=== PATIENT | female | born 1965 | race Caucasian/White ===

== ENCOUNTER → 2017-04-21 | Outpatient (CLI) | payer OTHER ==
--- NOTE | 2017-04-21 12:54 | BD ---
EXAMINATION TYPE: MG DEXA axial skeleton. DATE OF EXAM: 04/21/2017 CLINICAL HISTORY: : no Height: 66 inches Weight: 139 pounds FRAX RISK QUESTIONS: Alcohol (3 or more units per day): no Family History (Parent hip fracture): no Glucocorticoids (More than 3mos): no (Ex: prednisone, prednisolone, methylprednisolone, dexamethasone, and hydrocortisone). History of Fracture in Adulthood: no Secondary Osteoporosis: 1. Type 1 Diabetes: no 2. Hyperthyroidism: no 3. Menopause before 45:no 4. Malnutrition: no 5. Chronic liver disease: no Rheumatoid Arthritis: no Current Tobacco Use: no RISK FACTORS HISTORY OF: Family History of Osteoporosis: no Active: yes Diet low in dairy products/other sources of calcium: somewhat; servings several times a week Postmenopausal woman: No Take estrogen and/or progesterone medications: no Lost more than 2 inches in height since high school: no Frequent falls: no Poor Health: no Hyperparathyroidism: no Adrenal Insufficiency: no MEDICATIONS: Prednisone or other steroids: no Thyroid Medications: no Osteoporosis Medications: no EXAM MEASUREMENTS: Bone mineral densitometry was performed using the [employer] System. Bone mineral density as measured about the Lumbar spine is: ----- L1-L4(G/cm2): 1.252 T Score Values are as follows: ----- L2: 0.2 ----- L3: 0.3 ----- L4: 1.5 ----- L1-L4: 0.6 Bone mineral density BASELINE Bone mineral density about the R hip (g/cm2): 1.049 Bone mineral density about the L hip (g/cm2): 1.080 T Score values are as follows: -----R Neck: 0.1 -----L Neck: 0.3 -----R Total: 0.5 -----L Total: 0.9 Bone mineral density BASELINE IMPRESSION: No evidence for osteoporosis or osteopenia. NOTE: T-SCORE=SD OF THE YOUNG ADULT MEAN.
== END | disposition home or self-care (01) ==
LOC: RADBDWWP 10:26
PROVIDERS: ATTEND Family Medicine
DX: N95.9 Unspecified menopausal and perimenopausal disorder (principal)
CPT/HCPCS: 77080

== ENCOUNTER → 2017-04-21 | Outpatient (CLI) | payer OTHER ==
--- NOTE | 2017-04-22 11:07 | MM ---
Reason for exam: screening (asymptomatic). Last mammogram was performed 14 years and 4 months ago. History: Patient had first child after 30. Physical Findings: A clinical breast exam by your physician is recommended on an annual basis and results should be correlated with mammographic findings. MG 3D Screening Mammo W/Cad Bilateral CC and MLO view(s) were taken. Prior study comparison: March 20, 2016, mammogram, performed at [facility]. February 22, 2015, mammogram, performed at [facility]. The breast tissue is heterogeneously dense. This may lower the sensitivity of mammography. Finding: There are stable diffuse/scattered calcifications in both breasts. There is no discrete abnormality. No significant changes in finding since March 20, 2016 and February 22, 2015. ASSESSMENT: Benign, BI-RAD 2 RECOMMENDATION: Routine screening mammogram of both breasts in 1 year.
== END | disposition home or self-care (01) ==
LOC: RADMAMWWP 10:21
PROVIDERS: ATTEND Obstetrics & Gynecology
DX: Z12.31 Encounter for screening mammogram for malignant neoplasm of breast (principal)
CPT/HCPCS: 77063; G0202

== ENCOUNTER 2018-09-20 22:02 | Emergency (ER) | payer MEDICAID ==
[2018-09-20 22:10] VITALS: BP 160/87; PULSE 78; RESP 15; TEMP 98
--- NOTE | 2018-09-20 23:34 | ED ---
Eye Problem HPI - General Chief complaint: Eye Problems Stated complaint: Flashing Vision "streaks and floaters" in vision Time Seen by Provider: 09/20/18 22:11 Source: patient Mode of arrival: ambulatory Limitations: no limitations - History of Present Illness Initial comments: 53-year-old female patient presents to the emergency department today for ev aluation of visual disturbance of left eye. States that 5 days ago she started to notice black floaters to her vision. States that 3 days ago she developed a white streaks through her vision and a fogginess. Patient reports that the right eye is normal. She denies any pain or discomfort to the left eye. Denies any headache. Denies any numbness, tingling, or weakness to her extremities. Denies any history of similar symptoms. Denies any head injury. Patient does not take medication states that she is otherwise healthy. Patient denies any recent rash, fever, chills, shortness breath, chest pain, abdominal pain, nausea, vomiting, diarrhea, constipation, back pain, hematuria, dysuria, urinary urgency, urinary frequency, or any other complaints. - Related Data Home Medications Medication Instructions Recorded Confirmed Biotin 5 mg PO DAILY 09/20/18 09/20/18 Escitalopram Oxalate [Lexapro] 10 mg PO DAILY 09/20/18 09/20/18 Glucosamine/Chondr Ac A Sod [Osteo 1 tab PO DAILY 09/20/18 09/20/18 Bi-Flex Caplet] Allergies Allergy/AdvReac Type Severity Reaction Status Date / Time No Known Allergies Allergy Verified 09/20/18 22:37 Review of Systems ROS Statement: Those systems with pertinent positive or pertinent negative responses have been documented in the HPI. ROS Other: All systems not noted in ROS Statement are negative. Past Medical History Past Medical History: No Reported History History of Any Multi-Drug Resistant Organisms: None Reported Past Surgical History: Section, Orthopedic Surgery Past Psychological History: Anxiety Smoking Status: Former smoker Past Alcohol Use History: Occasional Past Drug Use History: None Reported, Marijuana General Exam Limitations: no limitations General appearance: alert, in no apparent distress, other (This is a well-dev eloped, well-nourished adult female patient in no acute distress. Vital signs upon presentation are temperature 98.0F, pulse 78, respirations 15, blood pressure 160/87, pulse ox 100% on room air.) Eye exam: Present: normal appearance, PERRL, EOMI, other (Funduscopic examination was performed using ophthalmoscope, no retinal abnormalities were detected with this limited exam.). Absent: scleral icterus, conjunctival injection, nystagmus, periorbital swelling ENT exam: Present: normal exam, normal oropharynx, mucous membranes moist Respiratory exam: Present: normal lung sounds bilaterally. Absent: respiratory distress, wheezes, rales, rhonchi, stridor Cardiovascular Exam: Present: regular rate, normal rhythm, normal heart sounds. Absent: systolic murmur, diastolic murmur, rubs, gallop, clicks GI/Abdominal exam: Present: soft, normal bowel sounds. Absent: distended, tenderness, guarding, rebound, rigid Neurological exam: Present: alert, oriented X3, CN II-XII intact, other (Strength in all 4 extremities is 5/5.) Psychiatric exam: Present: normal affect, normal mood Skin exam: Present: warm, dry, intact, normal color. Absent: rash Course Vital Signs 09/20/18 22:05 Temperature 98.0 F Pulse Rate 78 Respiratory 15 Rate Blood Pressure 160/87 O2 Sat by Pulse 100 Oximetry Medical Decision Making - Medical Decision Making 53-year-old female patient presented to the emergency department today for evaluation of visual disturbance of left eye. She reports black floaters and white streaks in her vision. Physical examination is relatively unremarkable. She is neurologically intact. Limited funduscopic examination was performed utilizing ophthalmoscope, no evidence for retinal abnormalities. I did discuss the case with the on-call wastewater process engineer Dr. Burrell who states he will be able to see the patient in the morning at 9 AM. I did discuss plan and findings with the patient. She is instructed to follow-up at [address] Burrell. I did discuss in detail risks of not following up for further ophthalmologic evaluation including permanent loss of vision. She does verbalize understanding of these risks. Return parameters discussed in detail. She verbalizes understanding and agrees with this plan. Disposition Clinical Impression: Visual disturbance Disposition: HOME SELF-CARE Condition: Good Instructions (If sedation given, give patient instructions): Blurred Vision (ED), Visual Floaters (ED) Additional Instructions: Follow-up with the wastewater process engineer in the morning at 9 AM. Return to the [facility] department immediately for any new, worsening, or concerning symptoms. Is patient prescribed a controlled substance at d/c from ED?: No Referrals: Sharon Miller MD [Primary Care Provider] - 1-2 days Edu Burrell MD [STAFF PHYSICIAN] - 1-2 days Time of Disposition: 23:34
== END 2018-09-20 23:42 | disposition home or self-care (01) ==
LOC: EC 22:02
DX: H53.9 Unspecified visual disturbance (principal); F41.9 Anxiety disorder, unspecified; Z87.891 Personal history of nicotine dependence; Z79.899 Other long term (current) drug therapy
CPT/HCPCS: 99283

== ENCOUNTER → 2018-12-30 | Outpatient (CLI) | payer MEDICAID ==
--- NOTE | 2018-12-30 13:43 | MM ---
Reason for exam: screening (asymptomatic). Last mammogram was performed 1 year and 8 months ago. History: Patient had first child after 30. Physical Findings: A clinical breast exam by your physician is recommended on an annual basis and results should be correlated with mammographic findings. MG 3D Screening Mammo W/Cad Bilateral CC and MLO view(s) were taken. Prior study comparison: April 21, 2017, bilateral MG 3d screening mammo w/cad. March 20, 2016, mammogram, performed at [facility]. The breast tissue is heterogeneously dense. This may lower the sensitivity of mammography. Finding: There is a 10 mm circumscribed round mass located 2 cm from the nipple in the anterior position of the left breast on MLO 34/55. ASSESSMENT: Incomplete: need additional imaging evaluation, BI-RAD 0 RECOMMENDATION: Special view mammogram and ultrasound of the right breast. [facility] will attempt to contact patient to return for supplemental views and ultrasound.
== END | disposition home or self-care (01) ==
LOC: RADMAMWWP 10:23
PROVIDERS: ATTEND Family Medicine
DX: Z12.31 Encounter for screening mammogram for malignant neoplasm of breast (principal)
CPT/HCPCS: 77063; 77067

== ENCOUNTER → 2019-01-13 | Outpatient (CLI) | payer MEDICAID ==
--- NOTE | 2019-01-13 14:06 | MM ---
Reason for exam: additional evaluation requested from abnormal screening. Last mammogram was performed less than 1 month ago. History: Patient had first child at age 35. Physical Findings: Nurse Summary: 0.5cm nodule in the right breast at 11 o'clock, 12 o'clock and 9 o'clock and a less than 1cm nodule in the left breast at 12-1 o'clock (nurse kp). MG 3D Work Up W/Cad LT Spot compression MLO and LM view(s) were taken of the left breast. Prior study comparison: December 30, 2018, bilateral MG 3d screening mammo w/cad. April 21, 2017, bilateral MG 3d screening mammo w/cad. The breast tissue is heterogeneously dense. This may lower the sensitivity of mammography. No significant new findings when compared with previous films. These results were verbally communicated with the patient and result sheet given to the patient on 01/13/19. ASSESSMENT: Benign, BI-RAD 2 RECOMMENDATION: Ultrasound core biopsy of the left breast. Called Dr. Miller with mammographic findings and has scheduled an appointment for the patient for 02/04/19 at 3:[address] Greenberg. Biopsy scheduled for 02/07/19 at 12:20. PRELIMINARY REPORT CALLED AND FAXED TO DR. GREENBERG ON 01/13/19.
--- NOTE | 2019-01-13 14:10 | USB ---
Reason for exam: additional evaluation requested from abnormal screening. History: Patient had first child at age 35. US Breast Workup Limited ARA Right limited breast ultrasound including focal area of concern, retroareolar and axilla demonstrates a 0.5 x 0.3 x 0.3cm oval, cystic cluster at 9 o'clock, a 0.2 x 0.3 x 0.2cm oval, cystic lesion at 9 o'clock BB, a 0.3 x 0.4 x 0.2cm oval, cystic lesion at 10 o'clock and a 0.5 x 0.3 x 0.3cm oval, cystic, complex lesion at 11 o'clock. Left limited breast ultrasound including focal area of concern, retroareolar and axilla demonstrates a 0.5 x 0.5 x 0.4cm oval, mixed lesion at 1 o'clock with calcification, suspicious, biopsy recommended, corresponds to left palpable, a 0.4 x 0.5 x 0.3cm oval, complex, cystic lesion at 2 o'clock and a 1.0 x 0.6 x 0.5cm lesion at the posterior nipple. These results were verbally communicated with the patient and result sheet given to the patient on 01/13/19. ASSESSMENT: Suspicious, BI-RAD 4 RECOMMENDATION: Ultrasound core biopsy of the left breast. Called Dr. Miller with mammographic findings and has scheduled an appointment for the patient for 02/04/19 at 3:[address] Greenberg. Biopsy scheduled for 02/07/19 at 12:20. PRELIMINARY REPORT CALLED AND FAXED TO DR. GREENBERG ON 01/13/19.
== END | disposition home or self-care (01) ==
LOC: RADMAMWWP 09:09
PROVIDERS: ATTEND Family Medicine
DX: R92.8 Other abnormal and inconclusive findings on diagnostic imaging of breast (principal)
CPT/HCPCS: 77061; 77065

== ENCOUNTER → 2019-02-10 | Outpatient (CLI) | payer MEDICAID ==
[2019-02-10 09:12] VITALS: BP 120/81; PULSE 69; RESP 18; TEMP 98.5; BMI 23.3
--- NOTE | 2019-02-10 09:54 | P.GSHP ---
History of Present Illness H&P Date: 02/10/19 Chief Complaint: Abnormal mammogram and ultrasound of the left breast Meenakshi is a 53-year-old white female status post right breast mammogram performed on 8818. This revealed a 10 mm circumscribed round mass 2 cm from the nipple in the anterior position of the left breast. No lesions of concern were seen on the right breast. She had additional compression views of the left breast which showed no significant new findings compared with previous films. She subsequently subsequently underwent an ultrasound of both breasts. Cyst were noted in the right breast and a 0.5 x 0.4 cm lesion at 1:00 with calcification was noted in the left breast for which core biopsy was recommended. The patient states she does not do self exams and therefore does not know if she has any changes in her breast. She has not noted any nipple discharge or skin changes. Patient does not have any pain in her breasts. Family history: 1. father: prostate cancer Hormonal History: Menarche:12 , 2 miscarrages, breast fed: yes, first born at 31 Menopause: Periods are regular at this time her last menstrual period was 4 months ago BCP: yes, 15 years hormones: none Surgical history: 1. D&C 2. Meniscus surgery in her right knee Medical history: none Social history: Smoke: Smoked for 15 years but then stopped, for 20 years, started intermittent 2 years ago now approximately half a pack per day Alcohol: 3-4 nights per week 1/2 to 1 pint of vodka drugs: Marijuana daily for relaxation - Constitutional Constitutional: Reports sweats - EENT Eyes: denies blurred vision, denies pain Ears: deny: decreased hearing, tinnitus Ears, nose, mouth and throat: Denies headache, Denies sore throat - Breasts Breasts: bilateral: as per HPI - Cardiovascular Cardiovascular: Denies chest pain, Denies shortness of breath - Respiratory Respiratory: Denies cough, Denies 7 - Gastrointestinal Gastrointestinal: Denies abdominal pain, Denies diarrhea, Denies nausea, Denies vomiting - Genitourinary (Female) Genitourinary: Denies dysuria, Denies hematuria - Menstruation Menstruation: Reports cycle variable - Musculoskeletal Musculoskeletal: Denies myalgias - Integumentary Integumentary: Reports rash, Denies pruritus - Neurological Neurological: Denies numbness, Denies weakness - Psychiatric Psychiatric: Reports anxiety, Denies depression - Endocrine Endocrine: Denies fatigue, Denies weight change - Hematologic/Lymphatic Comment: none - Allergic/Immunologic Allergic/Immunologic: Reports as per HPI, Reports seasonal allergies Past Medical History Past Medical History: No Reported History History of Any Multi-Drug Resistant Organisms: None Reported Past Surgical History: Section, Orthopedic Surgery Additional Past Surgical History / Comment(s): right meniscus repair 2013; section x1 2000; d&c 1995; Past Anesthesia/Blood Transfusion Reactions: Motion Sickness, Postoperative Nausea & Vomiting (PONV) Past Psychological History: Anxiety Smoking Status: Former smoker Past Alcohol Use History: Occasional Past Drug Use History: Marijuana - Past Family History Mother Family Medical History: COPD, Hypertension Additional Family Medical History / Comment(s): heart attack; passed at age 67; Father Family Medical History: Cancer Additional Family Medical History / Comment(s): prostate cancer; Brother(s) Family Medical History: AFIB, COPD, Hypertension Medications and Allergies Home Medications Medication Instructions Recorded Confirmed Type Escitalopram Oxalate [Lexapro] 10 mg PO QAM 09/20/18 02/10/19 History Allergies Allergy/AdvReac Type Severity Reaction Status Date / Time No Known Allergies Allergy Verified 02/10/19 09:01 Surgical - Exam Vital Signs Temp Pulse Resp BP Pulse Ox 98.5 F 69 18 120/81 98 02/10/19 09:01 02/10/19 09:01 02/10/19 09:01 02/10/19 09:01 02/10/19 09:01 BMI 23.4 - General well developed, well nourished, no distress - Eyes normal ocular movement - ENT no hearing loss, no congestion - Neck no masses, trachea midline - Respiratory normal respiratory effort, clear to auscultation - Cardiovascular Rhythm: regular Heart Sounds: normal: S1, S2 - Abdomen Abdomen: soft, non tender, no guarding, no rigid, no rebound - Integumentary normal turgor - Neurologic no disoriented, no combative - Musculoskeletal normal gait, normal posture - Psychiatric oriented to time, oriented to person, oriented to place, speech is normal, memory intact breast exam: right breast: Multi-positional exam, the cystic changes, no dominant masses or nodules of concern Right axilla: Shotty adenopathy nothing of concern Left breast: Multiple positional exam increased nodularity posterior to the nipple areolar complex appears to correspond to the area seen on the ultrasound Left axilla: Shotty adenopathy nothing of concern Results Mammogram and ultrasound results reviewed Assessment and Plan Assessment: Impression: 1. Abnormal mammogram and ultrasound of the left breast 2. Cyst noted in both breast on ultrasound 3. Fibrocystic breast changes 4. Fullness left breast radiographic abnormality behind the nipple areolar complex extending to the 1 o'clock position 5. Family history of cancer in father 6. Anxiety Plan: 1. Ultrasound core biopsy area of concern in the left breast 2. Medical management of medical conditions 3. Follow-up 1 week after ultrasound core biopsy CC: Dr. Miller
== END | disposition home or self-care (01) ==
LOC: WWCWWP 08:55
PROVIDERS: ATTEND Surgery
DX: Z53.9 Procedure and treatment not carried out, unspecified reason (principal)

== ENCOUNTER → 2019-02-15 | Day surgery (SDC) | payer MEDICAID ==
[2019-02-15 10:09] VITALS: RESP 16; BMI 23.7
[2019-02-15 12:06] VITALS: BP 146/93; PULSE 77; TEMP 98
--- NOTE | 2019-02-15 12:51 | USB ---
EXAMINATION TYPE: US biopsy breast VAD LT, MG diagnostic mammo LT wo CAD DATE OF EXAM: 02/15/2019 CLINICAL HISTORY: R92.8 ABN MAMMO. TECHNIQUE: Ultrasound guided core biopsy of the palpable left breast. COMPARISON: Bilateral breast ultrasound dated 01/13/2019 FINDINGS: The procedure of ultrasound guided core biopsy was explained to the patient. Benefits, alternatives, and risks were discussed. An informed consent was then obtained. A procedural timeout was performed. The patient was placed in supine positioning for imaging and for the procedure. The overlying skin was prepped and draped in usual sterile fashion. Lidocaine buffered with bicarbonate was used as anesthetic into the skin and subcutaneous tissue up to a palpable 0.5 x 0.5 x 0.4 cm mass at the 1:00 position in the left breast. Under ultrasound guidance, a 12-gauge vacuum assisted biopsy gun device was used to obtain 5 core samples. Following this, a ribbon-shaped biopsy marker was left in mass. Postprocedural mammogram demonstrates appropriate biopsy marker placement. The patient tolerated the procedure well without any immediate complication. The patient was kept in the radiology department for short stay after the procedure and then discharged home in stable condition. IMPRESSION: Successful, uncomplicated ultrasound guided core biopsy of a palpable 0.5 x 0.5 x 0.4 cm mass at the 1:00 position in the left breast, full pathology results to follow. Pathology Results: Benign LEFT BREAST, ULTRASOUND GUIDED CORE BIOPSY: Fibrocystic changes including small cysts, fibrosis, adenosis and microcalcifications. Recommendation Follow up mammogram of the left breast in 6 months. ODALYS
== END ==
LOC: RADUSWWP 09:34
PROVIDERS: ATTEND Surgery
DX: N60.12 Diffuse cystic mastopathy of left breast (principal); N60.22 Fibroadenosis of left breast; R92.0 Mammographic microcalcification found on diagnostic imaging of breast
CPT/HCPCS: 88305; 77065; 19083; A4648; J2001

== ENCOUNTER → 2019-02-24 | Outpatient (CLI) | payer MEDICAID ==
[2019-02-24 10:50] VITALS: BP 126/86; PULSE 85; RESP 18; TEMP 98.1; BMI 23.3
--- NOTE | 2019-02-24 11:08 | P.PN ---
Subjective Progress Note Date: 02/24/19 Meenakshi is a 53-year-old white female status post right breast mammogram performed on 8818. This revealed a 10 mm circumscribed round mass 2 cm from the nipple in the anterior position of the left breast. No lesions of concern were seen on the right breast. She had additional compression views of the left breast which showed no significant new findings compared with previous films. She subsequently subsequently underwent an ultrasound of both breasts. Cyst were noted in the right breast and a 0.5 x 0.4 cm lesion at 1:00 with calcification was noted in the left breast for which core biopsy was recommended. The patient states she does not do self exams and therefore does not know if she has any changes in her breast. She has not noted any nipple discharge or skin changes. Patient does not have any pain in her breasts. She underwent an ultrasound core biopsy on 02-15-19, Pathology was fibrocystic changes including small cystic fibrosis adenosis and microcalcifications. The patient complains only of some ecchymosis following the biopsy. Family history: 1. father: prostate cancer Hormonal History: Menarche:12 , 2 miscarrages, breast fed: yes, first born at 31 Menopause: Periods are regular at this time her last menstrual period was 4 months ago BCP: yes, 15 years hormones: none Surgical history: 1. D&C 2. Meniscus surgery in her right knee Medical history: none Social history: Smoke: Smoked for 15 years but then stopped, for 20 years, started intermittent 2 years ago now approximately half a pack per day Alcohol: 3-4 nights per week 1/2 to 1 pint of vodka drugs: Marijuana daily for relaxation - Constitutional Constitutional: Reports sweats - EENT Eyes: denies blurred vision, denies pain Ears: deny: decreased hearing, tinnitus Ears, nose, mouth and throat: Denies headache, Denies sore throat - Breasts Breasts: bilateral: as per HPI - Cardiovascular Cardiovascular: Denies chest pain, Denies shortness of breath - Respiratory Respiratory: Denies cough, Denies 7 - Gastrointestinal Gastrointestinal: Denies abdominal pain, Denies diarrhea, Denies nausea, Denies vomiting - Genitourinary (Female) Genitourinary: Denies dysuria, Denies hematuria - Menstruation Menstruation: Reports cycle variable - Musculoskeletal Musculoskeletal: Denies myalgias - Integumentary Integumentary: Reports rash, Denies pruritus - Neurological Neurological: Denies numbness, Denies weakness - Psychiatric Psychiatric: Reports anxiety, Denies depression - Endocrine Endocrine: Denies fatigue, Denies weight change - Hematologic/Lymphatic Comment: none - Allergic/Immunologic Allergic/Immunologic: Reports as per HPI, Reports seasonal allergies Past Medical History Past Medical History: No Reported History History of Any Multi-Drug Resistant Organisms: None Reported Past Surgical History: Section, Orthopedic Surgery Additional Past Surgical History / Comment(s): right meniscus repair 2013; section x1 2000; d&c 1995; Past Anesthesia/Blood Transfusion Reactions: Motion Sickness, Postoperative Nausea & Vomiting (PONV) Past Psychological History: Anxiety Smoking Status: Former smoker Past Alcohol Use History: Occasional Past Drug Use History: Marijuana - Past Family History Mother Family Medical History: COPD, Hypertension Additional Family Medical History / Comment(s): heart attack; passed at age 67; Father Family Medical History: Cancer Additional Family Medical History / Comment(s): prostate cancer; Brother(s) Family Medical History: AFIB, COPD, Hypertension Objective - Vital Signs Vital signs: Vital Signs Temp 98.1 F 02/24/19 10:45 Pulse 85 02/24/19 10:45 Resp 18 02/24/19 10:45 BP 126/86 02/24/19 10:45 Pulse Ox 98 02/24/19 10:45 Intake & Output 02/23/19 02/24/19 02/24/19 18:59 06:59 18:59 Weight 65.771 kg - Exam BMI 23.4 - Constitutional General appearance: Present: average body habitus - EENT Eyes: Present: EOMI ENT: Present: hearing grossly normal - Neck Neck: Present: normal ROM - Respiratory Respiratory: bilateral: CTA - Cardiovascular Rhythm: regular Heart sounds: normal: S1, S2 - Integumentary Integumentary Comment(s): left breast ecchymosis No evidence of any infection - Musculoskeletal Musculoskeletal: Present: gait normal - Psychiatric Psychiatric: Present: A&O x's 3, appropriate affect, intact judgment & insight - Additional findings Additional findings: Left breast: Ecchymosis at biopsy site Hematoma approximately 2 cm x 2 cm at biopsy site No evidence of any infection Assessment and Plan Assessment: Impression: 1. Abnormal mammogram and ultrasound of the left breast status post ultrasound- guided core biopsy benign 2. Cyst noted in both breasts and ultrasound 3. Fibrocystic breast changes 4. Hematoma at site of ultrasound core biopsy with some mild ecchymosis 5. Family history of cancer in father 6. Anxiety Plan: 1. Repeat left breast mammogram in 6 months with physician exam at that time 2. Cold compresses to breast at area of hematoma 3. Follow-up after repeat mammogram in 6 months 4. Medical management of medical conditions CC: DR. Miller
== END ==
LOC: WWCWWP 10:35
PROVIDERS: ATTEND Surgery
DX: Z53.9 Procedure and treatment not carried out, unspecified reason (principal)

== ENCOUNTER → 2020-03-16 | Outpatient (CLI) | payer MEDICAID ==
--- NOTE | 2020-03-20 08:48 | MM ---
Reason for exam: screening (asymptomatic). Last mammogram was performed 1 year and 1 month ago. History: Patient is postmenopausal and had first child at age 35. Benign US biopsy breast VAD LT of the left breast, February 15, 2019. Physical Findings: A clinical breast exam by your physician is recommended on an annual basis and results should be correlated with mammographic findings. MG 3D Screening Mammo W/Cad Bilateral CC and MLO view(s) were taken. Prior study comparison: February 15, 2019, left breast MG diagnostic mammo LT wo CAD. January 13, 2019, left breast MG 3d work up w/cad LT. The breast tissue is heterogeneously dense. This may lower the sensitivity of mammography. Bilateral calcifications. No significant changes when compared with prior studies. ASSESSMENT: Benign, BI-RAD 2 RECOMMENDATION: Routine screening mammogram of both breasts in 1 year.
== END | disposition home or self-care (01) ==
LOC: RADMAMWWP 07:23
PROVIDERS: ATTEND Family Medicine
DX: Z12.31 Encounter for screening mammogram for malignant neoplasm of breast (principal)
CPT/HCPCS: 77063; 77067

== ENCOUNTER → 2020-05-11 | Outpatient (CLI) | payer MEDICAID ==
[2020-05-11 08:54] LABS: Appearance,Urine Clear (Clear); Bilirubin,Urine Negative (Negative); Blood,Urine Negative (Negative); Color,Urine Yellow; Glucose,Urine (UA) Negative (Negative); HCT 43.1 % (34.0-46.0); HGB 14.5 gm/dL (11.4-16.0); Ketones,Urine Negative (Negative); Leukocyte Esterase,Urine Negative (Negative); MCH 32.1 pg (25.0-35.0); MCHC 33.6 g/dL (31.0-37.0); MCV 95.6 fL (80.0-100.0); Mean Platelet Volume 8.3; Nitrite,Urine Negative (Negative); PH, Urine 5.5 (5.0-8.0); Platelet Count 244 k/uL (150-450); Protein,Urine Negative (Negative); RBC 4.51 m/uL (3.80-5.40); RDW 12.9 % (11.5-15.5); Specific Gravity,Urine 1.021 (1.001-1.035); Urobilinogen,Urine <2.0 mg/dL (<2.0)
[2020-05-11 09:03] LABS: INR 0.9 (<1.2); Partial Thromboplastin Time 23.1 sec (22.0-30.0); Prothrombin Time 9.5 sec (9.0-12.0)
[2020-05-11 09:19] LABS: ALT 18 U/L (4-34); AST 23 U/L (14-36); African American GFR (CKD) >90 (>60 ml/min/1.73 sqM); Albumin 4.5 g/dL (3.5-5.0); Alkaline Phosphatase 53 U/L (38-126); Anion Gap 5 mmol/L; Blood Urea Nitrogen 20 mg/dL (7-17); Calcium 9.4 mg/dL (8.4-10.2); Carbon Dioxide 28 mmol/L (22-30); Chloride 106 mmol/L (98-107); Glucose 94 mg/dL (74-99); Non-African American GFR(CKD) >90 (>60 ml/min/1.73 sqM); Potassium 4.8 mmol/L (3.5-5.1); Sodium 139 mmol/L (137-145); Total Bilirubin 0.3 mg/dL (0.2-1.3); Total Protein 7.2 g/dL (6.3-8.2)
== END | disposition home or self-care (01) ==
LOC: LABWHC1 07:59
PROVIDERS: ATTEND Orthopaedic Surgery
DX: Z01.818 Encounter for other preprocedural examination (principal); M16.11 Unilateral primary osteoarthritis, right hip; Z01.812 Encounter for preprocedural laboratory examination
CPT/HCPCS: 36415; 80053; 81003; 85027; 85610; 85730; 87070; 93005

== ENCOUNTER 2020-05-22 05:37 | Day surgery (SDC) | payer MEDICAID ==
[2020-05-15 16:02] VITALS: BMI 22.6
[~2020-05-22 05:37] MED LIST: ACETAMINOPHEN TAB 500 MG TAB PO PRN; GABAPENTIN 300 MG CAP PO PRN; MELOXICAM 7.5 MG TAB PO PRN; ROPIVACAINE 246.25 MG, EPINEPHrine 0.5 MG, KETOROLAC 30 MG, cloNIDine HCL/PF 80 MCG, WA... MISCELLANE PRN; TRANEXAMIC ACID 1,000 MG in SODIUM CHLORIDE 0.9% 100 ML IVPB PRN
[2020-05-22] MEDS ORDERED: LIDOCAINE 1% (10MG/ML) FOR IV START INTRADERMA PRN (05:47)
[2020-05-22] MEDS ORDERED: MIDAZOLAM 2 MG/2 ML VIAL IV PRN (05:47)
[2020-05-22] MEDS ORDERED: LACTATED RINGERS 1,000 ML IV SCH (05:47)
[2020-05-22] MEDS ORDERED: DEXAMETHASONE SOD PHOSPHATE 4 MG/ML 1 ML VIAL IV ONE (05:47)
[2020-05-22] MEDS: ONDANSETRON 4 MG/2 ML VIAL IVP ONE ×2 (06:17→08:44)
[2020-05-22] MEDS ORDERED: SCOPOLAMINE 1.5MG/72HR PATCH TRANSDERM ONE (06:18)
[2020-05-22] MEDS ORDERED: PROPOFOL 10 MG/ML 20 ML VIAL IV ONE (06:54)
[2020-05-22] MEDS ORDERED: SODIUM CHLORIDE 0.9% IRRIG 1,000 ML BTL IRRIGATION ONE (06:54)
[2020-05-22] MEDS ORDERED: KETAMINE 10 MG/ML 20 ML VIAL ONE (06:54)
[2020-05-22] MEDS ORDERED: SODIUM CHLORIDE 0.9% 100 ML BAG ONE (06:54)
[2020-05-22] MEDS ORDERED: TRANEXAMIC ACID 1,000 MG/10 ML VIAL ONE (06:54)
[2020-05-22] MEDS ORDERED: GLYCOPYRROLATE 0.2 MG/ML 2 ML VIAL ONE (06:54)
[2020-05-22] MEDS ORDERED: HEPARIN SODIUM,PORCINE 10,000 UNIT/ML 1 ML VIAL ONE (06:54)
[2020-05-22] MEDS ORDERED: NEOSTIGMINE 1 MG/ML 10 ML VIAL ONE (06:54)
[2020-05-22] MEDS ORDERED: SUCCINYLCHOLINE CHLORIDE 100 MG/5 ML SYR IV ONE (06:54)
[2020-05-22] MEDS ORDERED: LIDOCAINE 1% INJ 10MG/ML (20 ML MDV) ONE (06:54)
[2020-05-22] MEDS ORDERED: fentaNYL (PF) 50 MCG/ML 2 ML AMP ONE (06:54)
[2020-05-22] MEDS ORDERED: MIDAZOLAM 2 MG/2 ML VIAL ONE (06:54)
[2020-05-22] MEDS ORDERED: ROCURONIUM 10 MG/ML (10 ML VIAL) IV ONE (06:54)
[2020-05-22] MEDS ORDERED: HYDROmorphone (PF) 1 MG/ML ONE (06:54)
[2020-05-22] MEDS ORDERED: HYDROmorphone 1 MG/ML 1 ML SYRINGE IVP PRN (06:55)
[2020-05-22] MEDS ORDERED: MAGNESIUM HYDROXIDE 2,400 MG/10 ML CUP PO PRN (06:55)
[2020-05-22] MEDS ORDERED: ONDANSETRON 4 MG/2 ML VIAL IVP PRN (06:55)
[2020-05-22] MEDS ORDERED: HYDROmorphone 0.5 MG/0.5 ML SYRINGE IVP PRN ×2 (06:55→07:00)
[2020-05-22] MEDS ORDERED: HYDROmorphone 0.2 MG/1 ML SYRINGE IVP PRN (06:55)
[2020-05-22] MEDS ORDERED: NALOXONE 0.4 MG/ML 1 ML VIAL IV PRN (06:55)
[2020-05-22] MEDS ORDERED: HYDROcodone/APAP 7.5-325MG 1 EACH TAB PO PRN ×2 (06:58)
[2020-05-22] MEDS ORDERED: SODIUM CHLORIDE 0.9% 1,000 ML IV SCH (07:00)
[2020-05-22 08:27] VITALS: TEMP 97.2
--- NOTE | 2020-05-22 08:30 | P.OP ---
Date of Procedure: 05/22/20 Preoperative Diagnosis: Severe osteoarthritis right hip Postoperative Diagnosis: Severe osteoarthritis right hip Procedure(s) Performed: Right total hip arthroplasty with a direct anterior approach Implants: [employer] Polarstem standard size 2 [employer] R3, 3 hole hemispherical acetabular shell, 48 mm [employer] Reflection 6.5 mm cancellus screw, 20 mm 2 [employer] R3, XLPE 20 acetabular liner [employer] Oxinium femoral head 32 m, +0 All components were press-fit. The articulation is Oxinium on polyethylene. Anesthesia: GETA Surgeon: Bladimir Garcia Solder Making Laborer #1: Yojana Mohan Estimated Blood Loss (ml): 100 Pathology: other (Femoral head) Condition: stable Disposition: PACU Indications for Procedure: After failure of conservative treatment we discussed the surgical and nonsurgical treatment options at length. Patient wishes to proceed with a total hip arthroplasty with a direct anterior approach. Complications specific to this procedure were discussed at length, including but not limited to infection, leg length discrepancy, dislocation, nerve injury, and fracture. Covid-19 was also discussed at length with the patient, and they are aware of the current policies and procedures. The patient was given the option of delaying surgery, but they elect to proceed knowing these risks. Patient is aware of all these complications and informed consent was obtained Operative Findings: The operative findings are consistent with severe osteoarthritis of the right hip Description of Procedure: Patient was seen and evaluated in the preoperative area and the consent was reviewed. The operative site was marked with a skin marker. The patient was then brought to the operating room and given preoperative antibiotics intravenously. 1 g of Tranexamic acid was also given intravenously. A general anesthetic was administered by the anesthesia department. The patient was then placed on the Anderson table with the bony prominences well-padded. The hip area was then prepped with a ChloraPrep solution and draped in the usual sterile fashion. A universal timeout was then performed, which confirmed the patient's name, surgical site, ALLERGIES, and procedure being performed on the consent. Next the incision site was located at 1 cm distal and 1 cm lateral to the anterior superior iliac spine. The skin and subcutaneous tissues were sharply incised. Incision was carefully dissected down to the fascia overlying the tensor fascia joshua muscle. This fascia was then incised in line with the incision. Care was taken to stay laterally in order to avoid injuring the lateral femoral cutaneous nerve. Next, using blunt finger dissection, the tensor fascia joshua muscle was dissected off its investing fascia. The muscle was then carefully retracted laterally with a cobra retractor over the lateral neck of the femur. Next, the circumflex vessels were identified and cauterized using the AquaMantis device. The anterior hip capsule was then exposed. The capsule was then opened and an inverted T fashion. Cobra retractors were then placed intracapsularly. The retractors were maintained intracapsular throughout the procedure. The proximal femur was then visualized. A small amount of traction was placed on the leg. The femoral neck was then osteotomized appropriate level above the lesser trochanter. A small wedge of bone was then removed from the remaining femoral head. Next, using a corkscrew the femoral head was removed from the acetabulum. On gross visual inspection, the femoral head had complete loss of articular cartilage and multiple periarticular osteophytes. The femoral head was then measured. Attention was then turned to the acetabulum. The acetabulum was exposed and any remaining labrum was excised. Sequential reaming of the acetabulum was performed using fluoroscopic guidance until there was a good bed of bleeding cancellus bone. When the appropriate size was reached, a trial was then placed. The position and fit of the trial was checked with fluoroscopy. The trial was then removed. Then, using fluoroscopic guidance, the final implant was impacted at 20 of anteversion and 40 of abduction, and fully seated in the acetabulum. 2 screws were then placed in the acetabulum. Again fluoroscopy was used to check position of the screws. Next, the liner was then impacted, with a 20 elevated liner located in the anterior superior quadrant. Component locking was confirmed. Attention was then directed to the femur. With the aid of the Anderson table, the femur was externally rotated to approximately 130, extended, and adducted under the opposite leg. A side hook was then placed under the proximal femur, and the side hook elevator was used to elevate the proximal femur while releasing the capsule. Retractors were then placed. A capsular release was performed, as well as a release of the conjoined tendon, which afforded excellent visualization of the proximal femur. Next, a box osteotome was used to lateralize the proximal femur. A candle molder hand was then used to locate the femoral canal. Sequential broaching was then performed with appropriate size which afforded excellent fixation in the proximal femur. A trial was then placed with appropriate head and neck, and the hip was gently reduced with the aid of the Anderson table. Fluoroscopy was then used to check position of the components, as well as to ensure equal leg lengths. The hip was then gently dislocated and the trials were then removed. Final implants were then impacted and the hip was again reduced. Final fluoroscopic x-rays confirmed that the components were in anatomic position, as well as equal leg lengths. The hip was also taken through range of motion, and found to be stable. The hip was then copiously irrigated with antibiotic solution with pulsatile lavage. The hip was then irrigated with Irrisept solution. The soft tissues were then injected with a ropivacaine solution, which consisted of 246.25 mg of ropivacaine, 0.5 mg of epinephrine, 30 mg of Toradol, 80 g of clonidine, and 48.45 mL of sterile water, for a total of 100 mL of fluid injected. A second dose of 1 g of Tranexamic acid was also given intravenously. Any blood collected by Cell Saver was then returned to the patient at this time. The fascia was then closed with 2-0 strata fix suture. The subcutaneous tissue was closed with 3-0 Vicryl. The subcuticular tissue was closed with 3-0 strata fix suture. The skin was then closed with Exofin skin glue. After the glue and dried, and Optifoam silver impregnated dressing was applied. The patient was then transferred to the recovery room in stable condition. The occupational therapist's assistant YEMI Miles was required due to the complexity of surgery, and the need for skilled surgical garment assembler for positioning, draping, exposure, retraction, and closure of the wound.
--- NOTE | 2020-05-22 08:37 | FL ---
Fluoroscopy INDICATION: Pain FINDINGS: Fluoroscopy time: 44 seconds. Images obtained: 0. IMPRESSIONS: 1. Documentation of fluoroscopy.
--- NOTE | 2020-05-22 08:44 | XR ---
Fluoroscopy INDICATION: Pain FINDINGS: Images obtained: 2. IMPRESSIONS: 1. Documentation of fluoroscopy.
--- NOTE | 2020-05-22 08:45 | XR ---
EXAMINATION TYPE: XR Hip Limited RT DATE OF EXAM: 05/22/2020 COMPARISON: None HISTORY: Post hip surgery TECHNIQUE: AP right hip FINDINGS: Femoral and acetabular components placed. Postsurgical soft tissue changes are evident. No acute fracture post hip replacement. IMPRESSION: 1. No acute fractures post right hip prosthesis placement
[2020-05-22 08:47] VITALS: RESP 16
[2020-05-22 12:45] VITALS: BP 124/74; PULSE 72
[2020-05-22] MEDS ORDERED: SENNOSIDES-DOCUSATE SODIUM 1 EACH TAB PO SCH (21:00)
== END 2020-05-22 13:46 | disposition home health service (06) ==
LOC: OR 05:37
PROVIDERS: ATTEND Orthopaedic Surgery
DX: M16.11 Unilateral primary osteoarthritis, right hip (principal); Z85.828 Personal history of other malignant neoplasm of skin; Z98.891 History of uterine scar from previous surgery; Z98.890 Other specified postprocedural states; Z82.49 Family history of ischemic heart disease and other diseases of the circulatory system; Z72.0 Tobacco use; F41.9 Anxiety disorder, unspecified; L71.9 Rosacea, unspecified; Z80.42 Family history of malignant neoplasm of prostate; Z83.49 Family history of other endocrine, nutritional and metabolic diseases; Z79.1 Long term (current) use of non-steroidal anti-inflammatories (NSAID); Z79.899 Other long term (current) drug therapy; Z88.4 Allergy status to anesthetic agent
CPT/HCPCS: 97110; 97161; 86891; 86900; 86901; 86850; 88300; 73501; 27130; C1776; J2250; J0171; J1644; J1100; J2710; J0690; J2405; J2001; J3010; J1885; J1170 ×2; J2795; J0330; J2704; J0735

== ENCOUNTER → 2021-06-19 | Outpatient (CLI) | payer MEDICAID ==
--- NOTE | 2021-06-19 07:56 | CTL ---
EXAMINATION TYPE: CT Low Dose Lung DATE OF EXAM ORDERED: 06/19/2021 HISTORY: Long-term tobacco use. Lung cancer screening CT DLP: 101.[address] CTDI: 2.7 mGy Automated exposure control for dose reduction was used. SCREENING VISIT: Baseline COMPARISON: Non-2 TECHNIQUE: Low dose computed tomography scan was performed through the chest at 1 mm thick sections a nd reconstructed images in multiple planes at 1 mm and [address] DIAGNOSTIC QUALITY: Satisfactory FINDINGS: LUNG NODULES: Present, detailed below: There is 6.0 x 5.3 mm peripheral right lower lobe nodule axial image 200. LUNGS: COPD: Severity: Mild Fibrosis: Severity: Mild anterior bibasilar Lymph nodes: No greater than 1 cm mediastinal. Other findings: Ascending aorta ectasia or borderline aneurysm up to 3.9 cm RIGHT PLEURAL SPACE: Effusion: None Calcification: None Thickening: None Pneumothorax: None LEFT PLEURAL SPACE: Effusion: None Calcification: None Thickening: None Pneumothorax: None HEART: Heart Size: Normal Coronary Calcification: None Pericardial Effusion: Normal OTHER FINDINGS: Upper abdomen: None Bony thorax: Some ossific fusion of the anterior T11 and T12 elements. Supraclavicular region: None Other: None IMPRESSION: Single peripheral 6 x 5 mm right lower lobe nodule. No definitive greater than 6.[address] LUNG RAD AND CT CHEST RECOMMENDATION: Lung-Rad 2 Benign Appearance or Behavior: Continue annual sc reening with LDCT in 12 months. S Modifier (other clinically significant findings): S Ectasia/borderline aneurysm of the ascending thoracic aorta measuring up to 3.9 cm.
== END | disposition home or self-care (01) ==
LOC: RADCTMAIN 07:03
PROVIDERS: ATTEND Family Medicine
DX: Z12.2 Encounter for screening for malignant neoplasm of respiratory organs (principal); R91.1 Solitary pulmonary nodule; I71.2 Thoracic aortic aneurysm, without rupture; Z87.891 Personal history of nicotine dependence
CPT/HCPCS: 71271

== ENCOUNTER → 2021-08-14 | Outpatient (CLI) | payer MEDICAID ==
--- NOTE | 2021-08-14 19:56 | SFUN ---
SLEEP CENTER FOLLOW UP NOTE DATE OF SERVICE: 08/14/2021 This 56-year-old lady has been followed in Sleep Center. We discussed results of her sleep studies which were done for possible obstructive sleep apnea-hypopnea syndrome and following plan. I discussed results of the sleep studies with the patient in detail. No significant respiratory abnormalities were documented. Total apnea-hypopnea index is 1.7. Lowest oxygen level 88%. No significant abnormalities of respiration. Very minimal periodic limb movements were documented; 7.9 times per hour with 0.9 microarousals per hour, which by today's criteria is considered to be in normal range. Wilmot Sleepiness Scale today is 3, which is normal. MEDICATIONS: None. PHYSICAL EXAMINATION: GENERAL: Pleasant patient in no distress. VITAL SIGNS: BP 127/83, HR 74. RR 16, weight 158.6, height 5 feet and 5-3/4 inches. HEENT: PERRLA, EOMI, evaluation of oropharynx showed tongue protrudes midline. Extremely low position of soft palate; Mallampati IV. NECK: Supple, no JVD. Thyroid is not palpable. LUNGS: Clear to percussion and to auscultation. Good air exchange. No wheezing or rhonchi. HEART: S1, S2 regular. No murmurs, gallops, or rubs. ABDOMEN: Soft and nontender. Bowel sounds are present. No organomegaly appreciated. EXTREMITIES: No clubbing or cyanosis. EMBLEM FUSER TENDER: Awake, alert, and oriented X3. Cranial nerves 2 to 7 intact. There is no fasciculation or atrophy. noted. No focal deficits observed. IMPRESSION: 1. No significant respiratory abnormalities were documented during the sleep study. 2. No significant amount of periodic limb movements documented during the sleep test. 3. A few limb movements were documented during REM sleep, which dictates necessity to include REM sleep behavioral disorder in differential diagnosis, but the patient does not have any history of any [id number] movements at the present time. 4. Menopause. 5. History of acid reflux. 6. Status post retinal detachment. 7. Shoulder arthritis. 8. Status post right hip total replacement. 9. Snoring. PLAN: 1. Sleep hygiene with regular time in bed for at least 7-1/2 8 hours. 2. Preferable position on the side. On this position, snoring was less and breathing was better. 3. The patient may have evaluation by an ear, nose and throat physician for possible treatment of snoring. Snoring was documented during the sleep study. 4. Oral appliances also could be considered for treatment of snoring. Thank you very much for allowing me to participate in the management of your patient. Sincerely, Rufino Cai MD, PhD, FAASM Diplomat of [employer] Sleep Medicine Board of [employer] [facility] [place] MMODL / MORRIS: [phone] /
== END ==
LOC: SLEEP 15:00
PROVIDERS: ATTEND Internal Medicine
DX: G47.8 Other sleep disorders (principal); R06.83 Snoring; Z78.0 Asymptomatic menopausal state; M19.019 Primary osteoarthritis, unspecified shoulder; Z96.641 Presence of right artificial hip joint; Z86.69 Personal history of other diseases of the nervous system and sense organs; Z87.19 Personal history of other diseases of the digestive system; Z87.891 Personal history of nicotine dependence

== ENCOUNTER → 2021-09-18 | Outpatient (CLI) | payer MEDICAID ==
--- NOTE | 2021-09-18 19:46 | BD ---
EXAMINATION TYPE: Axial Bone Density DATE OF EXAM: 09/18/2021 COMPARISON: 04.21.2017 CLINICAL HISTORY: 56 years year old Female. ICD-10 CODE: Z78.0 Asymptomatic Height: 65 Weight: 156 FRAX RISK QUESTIONS: Current Tobacco Use: NO, MARIJUANA RISK FACTORS HISTORY OF: Surgery to HX OF RT HIP REPLACEMENT, 2019 Active: YES Postmenopausal woman: YES, AT 54 Hyperparathyroidism: NO Adrenal Insufficiency: NO MEDICATIONS: Additional Medications: VIT D AND CALCIUM IN HER MULTIVITAMIN, TUMERIC, VIT E, Additional History: THR, 2019, ARTHRITIS EXAM MEASUREMENTS: Bone mineral densitometry was performed using the [employer] System. Bone mineral density as measured about the Lumbar spine is: ----- L1-L4(G/cm2): 1.227 T Score Values are as follows: ----- L1: 0.0 ----- L2: 0.2 ----- L3: 0.3 ----- L4: 0.8 ----- L1-L4: 0.4 Bone mineral density has: Decreased -2.3% since study of: 04.21.2017 Bone mineral density about the L hip (g/cm2): 1.104 T Score values are as follows: -----L Neck: 0.4 -----L Total: 0.8 Bone mineral density has: Decreased -1.4% since study of: 04.21.2017 FRAX%s: The graph provided illustrates a 5.1% chance for a major osteoporotic fx and a 0.1% chance fo r the hips probability for fx in 10 years time. IMPRESSION: Normal (Values between +1 and -1 indicate normal bone mass). Consider repeating this study in 5 year s or sooner if there is some new clinical indication. NOTE: T-SCORE=SD OF THE YOUNG ADULT MEAN.
--- NOTE | 2021-09-19 10:58 | MM ---
Reason for exam: screening (asymptomatic). Last mammogram was performed 1 year and 6 months ago. History: Patient is postmenopausal and had first child at age 35. Benign US biopsy breast VAD LT of the left breast, February 15, 2019. Physical Findings: A clinical breast exam by your physician is recommended on an annual basis and results should be correlated with mammographic findings. MG 3D Screening Mammo W/Cad Bilateral CC and MLO view(s) were taken. Prior study comparison: March 16, 2020, bilateral MG 3d screening mammo w/cad. February 15, 2019, left breast MG diagnostic mammo LT wo CAD. The breast tissue is heterogeneously dense. This may lower the sensitivity of mammography. No significant changes when compared with prior studies. ASSESSMENT: Benign, BI-RAD 2 RECOMMENDATION: Routine screening mammogram of both breasts in 1 year.
== END | disposition home or self-care (01) ==
LOC: RADBDWWP 09:12
PROVIDERS: ATTEND Family Medicine
DX: Z12.31 Encounter for screening mammogram for malignant neoplasm of breast (principal); Z78.0 Asymptomatic menopausal state
CPT/HCPCS: 77063; 77067; 77080

== ENCOUNTER → 2022-06-25 | Outpatient (CLI) | payer OTHER ==
--- NOTE | 2022-06-25 08:17 | CTL ---
EXAMINATION TYPE: CT Low Dose Lung DATE OF EXAM: 06/25/2022 7:22 AM CLINICAL INDICATION:Female, 56 years old with history of Z87.891; Personal history of tobacco depende nce , history of tobacco use. COMPARISON: 06/19/2021 TECHNIQUE: Multiple axial non-contrast scans were obtained from approximately the lung apices through the upper abdomen. Coronal and sagittal reformatted images were obtained. Low dose technique was uti lized. CT DLP: 92.20 mGycm, Automated exposure control for dose reduction was used. CT Contrast: Contrast used: None Oral contrast used: None FINDINGS: ======== Lack of intravenous contrast and low dose technique limits the evaluation of the vascular and soft ti ssue structures. LUNGS: No evidence of emphysema or pulmonary fibrosis. No evidence of focal consolidation, pneumothor ax or pleural effusion. Nodules: RUL: None. RML: None. RLL: Similar 6 x 6 mm pulmonary nodule in the right lower lobe series 4 image 179 KARAN: None. LLL: None. AIRWAY: Patent and unremarkable. HEART: Size within normal limits. MEDIASTINUM: No gross evidence of adenopathy. Small hiatal hernia VASCULATURE: No aortic aneurysm. MUSCULOSKELETAL: No acute osseous abnormalities, right peripherally calcified joint body measuring at least 31 x 13 mm similar to prior. Multilevel disc degeneration changes throughout the spine. SOFT TISSUES/LYMPH NODES: Unremarkable. LOWER NECK: No significant findings. UPPER ABDOMEN: No significant findings. IMPRESSION: 1. Stable right lower lobe pulmonary nodule measuring 6 mm. 2. Right shoulder periphery calcified suspected joint body. CT LUNG RAD AND CT CHEST RECOMMENDATION: Lung-Rad 2 Benign Appearance or Behavior: Continue annual sc reening with LDCT in 12 months. S Modifier (other clinically significant findings): None Recommend smoking cessation (if current smoker), or continuation of smoking cessation (if prior smoke r). Annual screening for lung cancer with low-dose computed tomography is recommended in adults ages 55 to 77 years who have a 30 pack-year smoking history and currently smoke or have quit within the pa st 15 years. Screening should be discontinued once a person has not smoked for 15 years or develops a health problem that substantially limits life expectancy or the ability or willingness to have curat keiry lung surgery. Lung rads 2021 [email or web address]
== END | disposition home or self-care (01) ==
LOC: RADCTMAIN 06:58
PROVIDERS: ATTEND Family Medicine
DX: Z12.2 Encounter for screening for malignant neoplasm of respiratory organs (principal); R91.1 Solitary pulmonary nodule; M61.411 Other calcification of muscle, right shoulder; Z87.891 Personal history of nicotine dependence
CPT/HCPCS: 71271

== ENCOUNTER → 2022-10-13 | Outpatient (CLI) | payer OTHER ==
--- NOTE | 2022-10-14 19:56 | MM ---
Reason for Exam: Screening (asymptomatic). Last mammogram was performed 1 year(s) and 1 month(s) ago. Patient History: Menarche at age 13. First Full-Term at age 35. Late child-bearing (after 30). Postmenopausal. Patient has history of breast feeding. 02/15/2019, Benign Core Biopsy on the left side. Risk Values: Nicky 5 year model risk: 2.1%. NCI Lifetime model risk: 12.5%. Prior Study Comparison: 02/15/2019 Left Diagnostic Mammogram, [facility]. 03/16/2020 Bilateral Screening Mammogram, [facility]. 09/18/2021 Bilateral Screening Mammogram, [facility]. Tissue Density: The breast tissue is heterogeneously dense. This may lower the sensitivity of mammography. Findings: Analyzed By CAD. Microclip left breast from prior biopsy. Benign regional punctate calcifications anteriorly on the right. Chronic nodularity far inferior right breast on the CC view remains unchanged when 3-D images are utilized. There is no suspicious group of microcalcifications or new suspicious mass in either breast. Overall Assessment: Benign, BI-RAD 2 Management: Screening Mammogram of both breasts in 1 year. . Patient should continue monthly self-breast exams. A clinical breast exam by your physician is recommended on an annual basis. This exam should not preclude additional follow-up of suspicious palpable abnormalities. Note on Nicky scores and lifetime risk: 1. A Nicky score greater than 3% is considered moderate risk. If this is the case, consider specialist referral to assess eligibility for a risk reducing agent. 2. If overall lifetime risk for the development of breast cancer is 20% or higher, the patient may qualify for future screening with alternating mammogram and breast MRI. Electronically signed and approved by: Ev Macedo M.D. Radiologist
== END | disposition home or self-care (01) ==
LOC: RADMAMWWP 16:42
PROVIDERS: ATTEND Family Medicine
DX: Z12.31 Encounter for screening mammogram for malignant neoplasm of breast (principal); Z78.0 Asymptomatic menopausal state
CPT/HCPCS: 77063; 77067

== ENCOUNTER → 2023-07-03 | Outpatient (CLI) | payer OTHER ==
--- NOTE | 2023-07-03 14:29 | CTL ---
EXAMINATION TYPE: CT Low Dose Lung DATE OF EXAM: 07/03/2023 10:50 AM CLINICAL INDICATION:Female, 57 years old with history of Z87.891 PERSONAL HISTORY OF NICOTINE DEPENDE NCE; , history of tobacco use. COMPARISON: 06/25/2022 TECHNIQUE: Multiple axial non-contrast scans were obtained from approximately the lung apices through the upper abdomen. Coronal and sagittal reformatted images were obtained. Low dose technique was uti lized. CT DLP: mGycm, Automated exposure control for dose reduction was used. CT Contrast: Contrast used: None Oral contrast used: None FINDINGS: ======== Lack of intravenous contrast and low dose technique limits the evaluation of the vascular and soft ti ssue structures. LUNGS: No evidence of pulmonary fibrosis. No evidence of focal consolidation, pneumothorax or pleural effusion. Mild centrilobular emphysema changes. Nodules: RUL: None. RML: None. RLL: 5 mm series 4 image 194. KARAN: None. LLL: None. AIRWAY: Patent and unremarkable. HEART: Size within normal limits. MEDIASTINUM: No gross evidence of adenopathy. VASCULATURE: No aortic aneurysm. MUSCULOSKELETAL: No acute osseous abnormalities SOFT TISSUES/LYMPH NODES: Unremarkable. LOWER NECK: No significant findings. UPPER ABDOMEN: No significant findings. IMPRESSION: 1. No pulmonary nodules. 2. Mild emphysema. CT LUNG RAD AND CT CHEST RECOMMENDATION: Lung-Rad 2 Benign Appearance or Behavior: Continue annual sc reening with LDCT in 12 months. S Modifier (other clinically significant findings): None Recommend smoking cessation (if current smoker), or continuation of smoking cessation (if prior smoke r). Annual screening for lung cancer with low-dose computed tomography is recommended in adults ages 55 to 77 years who have a 30 pack-year smoking history and currently smoke or have quit within the pa st 15 years. Screening should be discontinued once a person has not smoked for 15 years or develops a health problem that substantially limits life expectancy or the ability or willingness to have curat keiry lung surgery. Lung rads 2021 [email or web address]
== END | disposition home or self-care (01) ==
LOC: RADCTMAIN 09:25
PROVIDERS: ATTEND Family Medicine
DX: Z12.2 Encounter for screening for malignant neoplasm of respiratory organs (principal); Z87.891 Personal history of nicotine dependence; J43.2 Centrilobular emphysema
CPT/HCPCS: 71271

== ENCOUNTER → 2023-09-01 | Outpatient (CLI) | payer OTHER ==
--- NOTE | 2023-09-01 18:57 | US ---
EXAMINATION TYPE: US arterial LE single level DATE OF EXAM: 09/01/2023 10:54 AM CLINICAL INDICATION: Female, 58 years old with history of L97.315; Doppler Waveforms: Right: Multiphasic Left: Multiphasic Ankle-Brachial Indices: Right: 1.04 Left: 1.06 (Vessel hardening > 1.4; Normal 0.9 - 1.4, Moderate 0.7 - 0.9, Severe 0.5-0.7) Toe Brachial Indices: Right: 0.6 Left: 0.84 IMPRESSION: Ankle-brachial indices within normal limits bilaterally.
--- NOTE | 2023-09-01 19:23 | US ---
EXAMINATION TYPE: US venous doppler duplex LE DATE OF EXAM: 09/01/2023 10:12 AM COMPARISON: NONE CLINICAL INDICATION: Female, 58 years old with history of L97.315 NON-PRESSURE CHRONIC ULCER OF RT AN KLE W/M; No hx of DVT. Patient does not take blood thinners. SIDE PERFORMED: Bilateral TECHNIQUE: The lower extremity deep venous system is examined utilizing real time linear array sonog ezequiel with graded compression, doppler sonography and color-flow sonography. VESSELS IMAGED: Common Femoral Vein Deep Femoral Vein Greater Saphenous Vein * Femoral Vein Popliteal Vein Small Saphenous Vein * Proximal Calf Veins (* superficial vessels) Right Leg: No evidence of DVT. Left Leg: No evidence of DVT. IMPRESSION:
== END | disposition home or self-care (01) ==
LOC: RADUSWWP 09:28
PROVIDERS: ATTEND Nurse Practitioner Family
DX: L97.315 Non-pressure chronic ulcer of right ankle with muscle involvement without evidence of necrosis (principal); T81.31XA Disruption of external operation (surgical) wound, not elsewhere classified, initial encounter
CPT/HCPCS: 93922; 93970

== ENCOUNTER → 2023-09-08 | Outpatient (CLI) | payer OTHER ==
[2023-09-08 16:13] LABS: Blood Urea Nitrogen 15.2 mg/dL (9.0-27.0); Calcium 9.5 mg/dL (8.7-10.3); Carbon Dioxide 26.5 mmol/L (21.6-31.8); Chloride 103 mmol/L (96-109); Glucose 93 mg/dL (70-110); Potassium 4.5 mmol/L (3.5-5.5); Sodium 140 mmol/L (135-145)
== END | disposition home or self-care (01) ==
LOC: LABWHC1 10:24
PROVIDERS: ATTEND Internal Medicine Infectious Disease
DX: L97.315 Non-pressure chronic ulcer of right ankle with muscle involvement without evidence of necrosis (principal); T81.31XA Disruption of external operation (surgical) wound, not elsewhere classified, initial encounter
CPT/HCPCS: 36415; 80048

== ENCOUNTER → 2023-09-10 | Outpatient (CLI) | payer OTHER ==
--- NOTE | 2023-09-15 21:58 | MR ---
EXAMINATION TYPE: MR ankle RT wo/w con DATE OF EXAM: 09/10/2023 COMPARISON: None available HISTORY: Rt ankle medial wound post surgery Multiplanar, multisequence images of the right ankle were acquired without and with contrast. FINDINGS: LIGAMENTS: Anterior talofibular ligament is significantly attenuated, likely relating to chronic tear. The calcaneofibular and posterior talofibular ligaments are normal. Deltoid ligamentous complex is normal. Tibiofibular syndesmosis is normal. Spring ligament is normal. Lisfranc ligament normal. PERONEAL TENDONS: Short segment partial-thickness longitudinal split tear of the peroneus brevis tend on. Increased fluid within the inframalleolar peroneus longus tendon sheath. FLEXOR TENDONS: Flexor tendons are intact. Increased fluid at the intersection of the flexor digitoru m longus and flexor hallucis longus tendons, may relate to intersection syndrome.. EXTENSOR TENDONS: Normal. ACHILLES TENDON: Normal. BONES/CARTILAGE/JOINT: Bone marrow signal is normal. Articular cartilage is normal. No joint effusion. SOFT TISSUES: Posterior medial skin and wound with underlying subcutaneous edema and intramuscular edema. No locula yohana fluid collection. No bursal distention. Kager's fat pad is normal. Sinus tarsi is normal. Complete tear of the proximal plantar fascia. Neurovascular structures are normal. No abnormal or masslike postcontrast enhancement. IMPRESSION: 1. Medial skin wound with underlying reactive subcutaneous and intramuscular edema. No fluid collecti on or evidence of osteomyelitis. 2. Short segment partial-thickness longitudinal split tear of the peroneus brevis tendon. 3. Peroneus longus tenosynovitis. 4. 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 5. Tear of the proximal plantar fascia. 6. Chronic ATFL tear.
== END | disposition home or self-care (01) ==
LOC: RADMRIMAIN 17:23
PROVIDERS: ATTEND Internal Medicine Infectious Disease
DX: M65.871 Other synovitis and tenosynovitis, right ankle and foot (principal); L97.315 Non-pressure chronic ulcer of right ankle with muscle involvement without evidence of necrosis; R60.0 Localized edema

== ENCOUNTER → 2023-10-27 | Outpatient (CLI) | payer OTHER ==
--- NOTE | 2023-10-28 14:39 | MM ---
Reason for Exam: Screening (asymptomatic). Last mammogram was performed 1 year(s) and 1 month(s) ago. Patient History: Menarche at age 13. First Full-Term at age 35. Late child-bearing (after 30). Postmenopausal. Patient has history of breast feeding. 02/15/2019, Benign Core Biopsy on the left side. Risk Values: Nicky 5 year model risk: 2.2%. NCI Lifetime model risk: 12.2%. Prior Study Comparison: 03/16/2020 Bilateral Screening Mammogram, [facility]. 09/18/2021 Bilateral Screening Mammogram, [facility]. 10/13/2022 Bilateral MG 3D screening mammo w/cad, [facility]. Tissue Density: The breasts are heterogeneously dense, which may obscure small masses. Findings: Analyzed By CAD. Left breast biopsy clip. Right breast: There is no suspicious group of microcalcifications or new suspicious mass. Benign-appearing calcifications right breast. Left breast: There is no suspicious group of microcalcifications or new suspicious mass. Benign-appearing calcifications left breast. Overall Assessment: Benign, BI-RAD 2 Management: Screening Mammogram of both breasts in [address] [facility] will attempt to contact patient to return for supplemental views and ultrasound if indicated. Patient should continue monthly self-breast exams. A clinical breast exam by your physician is recommended on an annual basis. This exam should not preclude additional follow-up of suspicious palpable abnormalities. Note on Nicky scores and lifetime risk: 1. A Nicky score greater than 3% is considered moderate risk. If this is the case, consider specialist referral to assess eligibility for a risk reducing agent. 2. If overall lifetime risk for the development of breast cancer is 20% or higher, the patient may qualify for future screening with alternating mammogram and breast MRI. Electronically signed and approved by: Je Amato DO
== END | disposition home or self-care (01) ==
LOC: RADMAMWWP 09:08
PROVIDERS: ATTEND Family Medicine
DX: Z12.31 Encounter for screening mammogram for malignant neoplasm of breast (principal); Z78.0 Asymptomatic menopausal state
CPT/HCPCS: 77063; 77067

== ENCOUNTER → 2024-05-16 | Outpatient (CLI) | payer OTHER ==
[2024-05-16 11:02] LABS: Basophils # (A) 0.05 X 10*3/uL (0.00-0.10); Basophils % (A) 0.9 %; Eosinophils # (A) 0.15 X 10*3/uL (0.04-0.35); Eosinophils % (A) 2.7 %; HCT 40.5 % (37.2-46.3); HGB 12.9 g/dL (12.0-15.0); Lymphocytes # (A) 1.95 X 10*3/uL (0.90-5.00); Lymphocytes % (A) 34.6 %; MCH 30.1 pg (27.0-32.0); MCHC 31.9 g/dL (32.0-37.0); MCV 94.6 FL (80.0-97.0); Mean Platelet Volume 11.4 FL (9.5-12.2); Monocytes # (A) 0.46 X 10*3/uL (0.20-1.00); Monocytes % (A) 8.2 %; NRBC Per 100 WBC 0 X 10*3/uL (0.00-0.01); Neutrophils # (A) 3.02 X 10*3/uL (1.80-7.70); Neutrophils % (A) 53.4 %; Platelet Count 252 X 10*3/uL (140-440); RBC 4.28 X 10*6/uL (4.10-5.20); RDW 14.3 % (11.5-14.5); WBC 5.64 X 10*3/uL (4.50-10.00)
[2024-05-16 11:28] LABS: ALT 26 U/L (8-44); AST 23 U/L (13-35); Albumin 4.5 g/dL (3.8-4.9); Alkaline Phosphatase 64 U/L (41-126); BUN/Creat Ratio 28.33 Ratio (12.00-20.00); Calcium 9.6 mg/dL (8.7-10.3); Carbon Dioxide 29.2 mmol/L (21.6-31.8); Chloride 104 mmol/L (96-109); Globulin 2.5 g/dL (1.6-3.3); Glucose 105 mg/dL (70-110); Potassium 4.5 mmol/L (3.5-5.5); Sodium 142 mmol/L (135-145); Total Bilirubin 0.3 mg/dL (0.3-1.2)
== END | disposition home or self-care (01) ==
LOC: LABWHC1 08:00
PROVIDERS: ATTEND Orthopaedic Surgery
DX: M16.12 Unilateral primary osteoarthritis, left hip (principal)
CPT/HCPCS: 36415; 80053; 85025; 87070

== ENCOUNTER → 2024-07-27 | Outpatient (CLI) | payer OTHER ==
--- NOTE | 2024-07-27 09:12 | CTL ---
EXAMINATION TYPE: CT Low Dose Lung DATE OF EXAM: 07/27/2024 8:57 AM COMPARISON: 07/03/2023. CLINICAL INDICATION: Female, 58 years old with history of Z12.2 ENCNTR SCREEN FOR MALIGNANT NEOPLASM Z87.891; Former smoker, was 1 ppd x 32 years, quit 3.5 years ago, hx COPD, history of tobacco use. TECHNIQUE: Multiple axial non-contrast scans were obtained from approximately the lung apices through the upper abdomen. Coronal and sagittal reformatted images were obtained. Low dose technique was uti lized. MIP were created on a separate workstation and submitted for review. CT DLP: 119 mGycm, Automated exposure control for dose reduction was used. CT Contrast: Contrast used: None Oral contrast used: None FINDINGS: Lack of intravenous contrast and low dose technique limits the evaluation of the vascular and soft ti ssue structures. LUNGS: No evidence of pulmonary fibrosis. No evidence of focal consolidation, pneumothorax or pleural effusion. Centrilobular emphysema changes. Nodules: RUL: None. RML: None. RLL: 5 mm series 3 image 185, stable. KARAN: None. LLL: None. AIRWAY: Patent and unremarkable. HEART: Size within normal limits. No significant coronary artery calcifications. MEDIASTINUM: No gross evidence of adenopathy. VASCULATURE: No aortic aneurysm. MUSCULOSKELETAL: Mild disc degeneration changes are present throughout the thoracolumbar spine., righ t shoulder calcified joint body. Degeneration changes of the shoulder. 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 SOFT TISSUES/LYMPH NODES: Unremarkable. LOWER NECK: No significant findings. UPPER ABDOMEN: No significant findings. IMPRESSION: 1. No clinically significant pulmonary nodules. 2. Mild emphysema. CT LUNG RAD AND CT CHEST RECOMMENDATION: Lung-Rad 2 Benign Appearance or Behavior: Continue annual sc reening with LDCT in 12 months. S Modifier (other clinically significant findings): None Recommend smoking cessation (if current smoker), or continuation of smoking cessation (if prior smoke r). Annual screening for lung cancer with low-dose computed tomography is recommended in adults ages 55 to 77 years who have a 30 pack-year smoking history and currently smoke or have quit within the pa st 15 years. Screening should be discontinued once a person has not smoked for 15 years or develops a health problem that substantially limits life expectancy or the ability or willingness to have curat keiry lung surgery. Lung rads 2021 [email or web address] [facility], , 07/27/2024 9:09 AM
== END | disposition home or self-care (01) ==
LOC: RADCTMAIN 08:34
PROVIDERS: ATTEND Family Medicine
DX: Z12.2 Encounter for screening for malignant neoplasm of respiratory organs (principal); J43.2 Centrilobular emphysema; Z87.891 Personal history of nicotine dependence
CPT/HCPCS: 71271

== ENCOUNTER → 2024-11-01 | Outpatient (CLI) | payer OTHER ==
--- NOTE | 2024-11-01 13:36 | MM ---
Reason for Exam: Additional evaluation requested from abnormal screening. Last screening mammogram was performed less than 1 month ago. Patient History: Menarche at age 13. First Full-Term at age 35. Late child-bearing (after 30). Postmenopausal. Patient has history of breast feeding. 02/15/2019, Benign Core Biopsy on the left side. Risk Values: Nicky 5 year model risk: 2.3%. NCI Lifetime model risk: 12.0%. Prior Study Comparison: 10/13/2022 Bilateral MG 3D screening mammo w/cad, [facility]. 10/27/2023 Bilateral MG 3D screening mammo w/cad, [facility]. 10/27/2024 Bilateral MG 3D screening mammo w/cad, [facility]. Tissue Density: Left: The breasts are heterogeneously dense, which may obscure small masses. Findings: Analyzed By CAD. A few small benign-appearing round calcifications some which layer in the left breast are seen on additional views. No suspicious new group of microcalcifications noted. Overall Assessment: Benign, BI-RAD 2 Management: Screening Mammogram of both breasts in 1 year. Return to routine follow-up. Results were given to the patient verbally at the time of exam. Patient should continue monthly self-breast exams. A clinical breast exam by your physician is recommended on an annual basis. This exam should not preclude additional follow-up of suspicious palpable abnormalities. Note on Nicky scores and lifetime risk: 1. A Nicky score greater than 3% is considered moderate risk. If this is the case, consider specialist referral to assess eligibility for a risk reducing agent. 2. If overall lifetime risk for the development of breast cancer is 20% or higher, the patient may qualify for future screening with alternating mammogram and breast MRI. [facility], , 11/01/2024 1:32 PM. Electronically signed and approved by: Sohail Pollard M.D.
== END | disposition home or self-care (01) ==
LOC: RADMAMWWP 12:44
PROVIDERS: ATTEND Family Medicine
DX: R92.8 Other abnormal and inconclusive findings on diagnostic imaging of breast (principal); R92.332 Mammographic heterogeneous density, left breast; Z78.0 Asymptomatic menopausal state
CPT/HCPCS: 77065; G0279; 77061

== ENCOUNTER 2024-11-15 09:48 | Day surgery (SDC) | payer OTHER ==
[2024-11-11 09:22] VITALS: BMI 26.6
[~2024-11-15 09:48] MED LIST changes: -ACETAMINOPHEN TAB 500 MG TAB PO PRN; -GABAPENTIN 300 MG CAP PO PRN; +LIDOCAINE 1% (10MG/ML) FOR IV START INTRADERMA PRN; -MELOXICAM 7.5 MG TAB PO PRN; -ROPIVACAINE 246.25 MG, EPINEPHrine 0.5 MG, KETOROLAC 30 MG, cloNIDine HCL/PF 80 MCG, WA... MISCELLANE PRN; -TRANEXAMIC ACID 1,000 MG in SODIUM CHLORIDE 0.9% 100 ML IVPB PRN
[2024-11-15 10:21] VITALS: TEMP 98.2
[2024-11-15] MEDS: LACTATED RINGERS 1,000 ML IV SCH (10:26)
[2024-11-15] MEDS: IV FLUID CONTINUATION 1,000 ML IV ONE (10:26)
[2024-11-15] MEDS: ONDANSETRON 4 MG/2 ML VIAL IVP STA (10:32)
[2024-11-15] MEDS ORDERED: PROPOFOL 10 MG/ML 20 ML VIAL IV ONE (10:33)
[2024-11-15] MEDS ORDERED: LIDOCAINE 1% INJ 10MG/ML (20 ML MDV) ONE (10:33)
--- NOTE | 2024-11-15 10:35 | P.GSHP ---
History of Present Illness H&P Date: 11/15/24 Chief Complaint: Colon cancer screening 59-year-old female here for colonoscopy. Last colonoscopy 10 years ago. No bowel complaints. No family history of colon cancer. Past Medical History Past Medical History: No Reported History History of Any Multi-Drug Resistant Organisms: None Reported Past Surgical History: Section, Joint Replacement, Orthopedic Surgery Additional Past Surgical History / Comment(s): right meniscus repair x2. section x1. d&c. bilat. hip replacements. right foot surgery Past Anesthesia/Blood Transfusion Reactions: Motion Sickness, Postoperative Nausea & Vomiting (PONV) Past Psychological History: Anxiety Smoking Status: Never smoker Past Alcohol Use History: Occasional Past Drug Use History: Marijuana Additional Drug Use History / Comment(s): instructed to refrain from use 24 hrs prior to procedure - Past Family History Mother Family Medical History: COPD, Hypertension, Myocardial Infarction (NM) Additional Family Medical History / Comment(s): heart attack; passed at age 67; Father Family Medical History: Cancer Additional Family Medical History / Comment(s): prostate cancer; Brother(s) Family Medical History: AFIB, COPD, Hypertension Medications and Allergies Home Medications Medication Instructions Recorded Confirmed Type Escitalopram [Lexapro] 5 mg PO DAILY 11/11/24 11/15/24 History Allergies Allergy/AdvReac Type Severity Reaction Status Date / Time No Known Allergies Allergy Verified 11/15/24 10:13 Surgical - Exam Vital Signs Temp Pulse Resp BP Pulse Ox 98.2 F 60 16 145/83 97 11/15/24 10:20 11/15/24 10:20 11/15/24 10:20 11/15/24 10:20 11/15/24 10:20 Physical exam: General: Well-developed, well-nourished HEENT: Normocephalic, sclerae nonicteric Abdomen: Nontender, nondistended Extremities: No edema Neuro: Alert and oriented Assessment and Plan (1) Colon cancer screening Narrative/Plan: Will proceed with colonoscopy at this time Current Visit: Yes Status: Acute Code(s): Z12.11 - ENCOUNTER FOR SCREENING FOR MALIGNANT NEOPLASM OF COLON SNOMED Code(s): 002312212
--- NOTE | 2024-11-15 10:52 | P.PCN ---
Date of Procedure: 11/15/24 Procedure(s) Performed: PREOPERATIVE DIAGNOSIS: Colon cancer screening POSTOPERATIVE DIAGNOSIS: Ascending colon polyp x 2, diverticulosis PROCEDURE: Colonoscopy with snare polypectomy ANESTHESIA: MAC SURGEON: Chao Hernandez M.D. SPECIMENS: Polyps ENDOSCOPIC PROCEDURE: The patient was placed on the endoscopy table in the left decubitus position. The Olympus colonoscope was inserted into the anus and passed under direct visualization to the base of the cecum. The appendiceal orifice was visualized. From that point the scope was slowly withdrawn inspecting all surfaces carefully. There were no neoplastic inflammatory or polypoid lesions throughout the cecum. In the ascending colon there were 2 s mall polyps both removed using the snare with cautery technique. The remainder of the ascending transverse descending sigmoid and rectum was normal. There was mild scattered diverticulosis. Digital rectal examination was normal. The patient was taken to the recovery room in stable condition per anesthesia guidelines. RECOMMENDATIONS: Await biopsy results. Will contact patient with timing for next colonoscopy likely 5 years.
[2024-11-15 11:30] VITALS: BP 162/95; PULSE 64; RESP 16
== END 2024-11-15 11:55 | disposition home or self-care (01) ==
LOC: ORWHC2ENDO 09:48
PROVIDERS: ATTEND Surgery
DX: Z12.11 Encounter for screening for malignant neoplasm of colon (principal); D12.2 Benign neoplasm of ascending colon; K57.30 Diverticulosis of large intestine without perforation or abscess without bleeding; F41.9 Anxiety disorder, unspecified; Z82.49 Family history of ischemic heart disease and other diseases of the circulatory system; Z79.899 Other long term (current) drug therapy
CPT/HCPCS: 88305; 45385; J2405; J2003; J2704